=== PATIENT | male | born 1975 | race Two or more races ===

== ENCOUNTER 2016-12-28 16:25 | Emergency (ER) | payer SELFPAY ==
[~2016-12-28] VITALS: Ht 177.8 cm; Wt 95.0 kg
[2016-12-28 16:26] VITALS: BP 144/75; TEMP 98.2; O2SAT 99
--- NOTE | 2016-12-28 16:35 | PD ---
Physical Exam Time Seen by Provider: 16:33 Narrative 41 yo M requesting medical clearance after being treated for conjunctivitis. Finished antibx eye drops yesterday. Reports resolution of symptoms. 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 VS reviewed. Patient seen in triage. Awaiting bed placement. Data Data Last Documented VS Vital Signs Date Time Temp Pulse Resp B/P Pulse Ox O2 Delivery O2 Flow Rate FiO2 12/28/16 16:26 98.2 103 17 144/75 99 MDM Supervised Visit with SAMANTHA: Gabby Merritt December 28, 2016 16:35
--- NOTE | 2016-12-28 17:02 | PD ---
HPI . note to return to work Chief Complaint: Medical Clearance Time Seen by Provider: 16:58 Travel History International Travel<30 days: No Contact w/Intl Traveler<30days: No Traveled to known affect area: No History of Present Illness HPI 41 yr old male who recently had conjunctivitis here requesting a note to return to work. 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 Has no eye issues. PFSH Past Medical History ?: Not Social History Tobacco Use: No Allergies-Medications (Allergen,Severity, Reaction): Coded Allergies: No Known Allergies (Unverified , 12/28/16) Review of Systems General / Constitutional: No: Fever Eyes: No: Visual changes HENT: No: Headaches Cardiovascular: No: Chest Pain or Discomfort Respiratory: No: Shortness of Breath Gastrointestinal: No: Abdominal Pain Genitourinary: No: Dysuria Musculoskeletal: No: Pain Skin: No Rash Neurologic: No: Weakness Psychiatric: No: Depression Endocrine: No: Polydipsia Hematologic/Lymphatic: No: Easy Bruising Physical Exam Narrative GENERAL: AAO x 3, no acute distress, Well-nourished, well-developed patient. SKIN: Warm and dry. No visible rashes or bruising. HEAD: Normocephalic and atraumatic. EYES: No scleral icterus. No injection or drainage. EOM intact, PERRLA ENT: No nasal drainage noted. Mucous membranes pink. Airway patent. NECK: Supple, trachea midline. No JVD. CARDIOVASCULAR: Regular rate and rhythm without murmurs, gallops, or rubs. RESPIRATORY: Breath sounds equal bilaterally. No accessory muscle use. No rhonchi or rales. GASTROINTESTINAL: Visual inspection normal EXTREMITIES: No cyanosis or edema. BACK: Nontender without obvious deformity. No CVA tenderness. PSYCH: AAO x 3, normal affect. Data Data Last Documented VS Vital Signs Date Time Temp Pulse Resp B/P Pulse Ox O2 Delivery O2 Flow Rate FiO2 12/28/16 16:26 98.2 103 17 144/75 99 MDM Medical Decision Making Medical Screen Exam Complete: Yes Emergency Medical Condition: No Medical Record Reviewed: Yes Differential Diagnosis medical clearance, medical check up, Narrative Course 41 yr old male who recently had conjunctivitis here requesting a note to return to work. 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 Has no eye issues. A medical screening exam was performed: At the time of evaluation the presenting medical condition was determined not to be of an emergent nature. The patient was given the option of receiving additional care, but declined. Patient was given options for additional community resources from which to obtain care. The Patient Has Been advised to seek medical attention for their presenting complaint. The patient has been advised to return to the ER at any time if an emergent condition develops. Diagnosis Primary Impression: Encounter for medical screening examination Condition: Stable Rosana Santos December 28, 2016 17:02
== END 2016-12-28 17:16 | disposition left against medical advice (07) ==
LOC: NEPK 16:25
DX: Z02.79 Encounter for issue of other medical certificate (principal)
CPT/HCPCS: 99281

== ENCOUNTER 2017-04-23 10:39 | Emergency (ER) | payer SELFPAY ==
[~2017-04-23] VITALS: Ht 177.8 cm; Wt 100.0 kg
[2017-04-23 10:40] VITALS: BP 151/85; PULSE 87; RESP 15; TEMP 98.2; O2SAT 98
--- NOTE | 2017-04-23 10:51 | PD ---
HPI . diffuse abdominal pain x 1 day Chief Complaint: GI Complaint Time Seen by Provider: 10:50 Travel History International Travel<30 days: No Contact w/Intl Traveler<30days: No Traveled to known affect area: No History of Present Illness HPI 41-year-old male with history of tobaccoism here with complaints of diffuse abdominal pain that has been present since last night. Patient said he developed a sudden onset of nausea, vomiting and diarrhea. Since last night he' s had 2 episodes of vomiting. He tells me that he's had 2 loose stools. He is now having abdominal pain that he rates as 8/10. He denies any nausea. He denies CP or SOB. PFSH Past Medical History Medical History: Denies Significant Hx Social History Tobacco Use: No Allergies-Medications (Allergen,Severity, Reaction): Coded Allergies: No Known Allergies (Unverified , 12/28/16) Reported Meds & Prescriptions Reported Meds & Active Scripts Active No Active Prescriptions or Reported Medications Review of Systems General / Constitutional: No: Fever Eyes: No: Visual changes HENT: No: Headaches Cardiovascular: No: Chest Pain or Discomfort Respiratory: No: Shortness of Breath Gastrointestinal: Positive: Nausea, Vomiting, Diarrhea, Abdominal Pain Genitourinary: No: Dysuria Musculoskeletal: No: Pain Skin: No Rash Neurologic: No: Weakness Psychiatric: No: Depression Endocrine: No: Polydipsia Hematologic/Lymphatic: No: Easy Bruising Physical Exam Narrative GENERAL: AAO x 3, no acute distress, Well-nourished, well-developed patient. SKIN: Warm and dry. No visible rashes or bruising. HEAD: Normocephalic and atraumatic. EYES: No scleral icterus. No injection or drainage. ENT: No nasal drainage noted. Mucous membranes pink. Airway patent. NECK: Supple, trachea midline. No JVD. CARDIOVASCULAR: Regular rate and rhythm without murmurs, gallops, or rubs. RESPIRATORY: Breath sounds equal bilaterally. No accessory muscle use. No rhonchi or rales. GASTROINTESTINAL: Abdomen soft, mild tenderness to deep palpation. Neg Alva's sign or McBurney Point tenderness EXTREMITIES: No cyanosis or edema. BACK: No obvious deformity. No CVA tenderness. NEURO: CN II-12 intact, PSYCH: AAO x 3, normal affect. Data Data Last Documented VS Vital Signs Date Time Temp Pulse Resp B/P (MAP) Pulse Ox O2 Delivery O2 Flow Rate FiO2 04/23/17 11:25 04/23/17 11:05 18 04/23/17 11:04 97 Nasal Cannula 2.00 04/23/17 10:40 98.2 87 Orders Orders Complete Blood Count With Diff (04/23/17 10:54) Comprehensive Metabolic Panel (04/23/17 10:54) Lipase (04/23/17 10:54) Urinalysis - C+S If Indicated (04/23/17 10:54) Iv Access Insert/Monitor (04/23/17 10:54) Ecg Monitoring (04/23/17 10:54) Oximetry (04/23/17 10:54) Sodium Chloride 0.9% Flush (Ns Flush) (04/23/17 11:00) Ketorolac Inj (Toradol Inj) (04/23/17 11:00) Labs Laboratory Tests Test 04/23/17 11:02 Alanine Aminotransferase (ALT/SGPT) 75 U/L MDM Medical Decision Making Medical Screen Exam Complete: Yes Emergency Medical Condition: Yes Medical Record Reviewed: Yes Differential Diagnosis Gastroenteritis, gastritis, pancreatitis, cholecystitis, cholelithiasis, less likely nephrolithiasis Narrative Course 41-year-old male here with complaints of diffuse abdominal tenderness, nausea, vomiting and diarrhea for one day. On examination there are no gross abnormalities other than some diffuse tenderness in his abdomen with deep palpation. I've ordered some labs including CBC, CMP, lipase and UA. Pending workup will make further recommendations. At this time I will hold off on CT scan as his abdominal examination was fairly benign. Toradol given in ED. 1132: I was notified by nursing staff patient did not like toradol and decided to sign out AMA. Diagnosis Primary Impression: Left against medical advice Scripts No Active Prescriptions or Reported Meds Disposition: 07 AGAINST MEDICAL ADVICE Condition: Stable Rosana Santos Apr 23, 2017 10:51
[2017-04-23] MEDS ORDERED: KETOROLAC TROMETHAMINE 30 MG/ML (IVP) VIAL IVP ONE (11:00)
[2017-04-23] MEDS ORDERED: SODIUM CHLORIDE 0.9% FLUSH 10 ML FLUSH IV FLUSH PRN (11:00)
[2017-04-23 11:04] VITALS: O2SAT 97
[2017-04-23 11:20] LABS: AUTOMATED NEUTROPHIL # 4.2 TH/MM3 (1.8-7.7); BASOPHIL % 0.3 % (0.0-2.0); EOSINOPHIL # 0.1 TH/MM3 (0-0.4); EOSINOPHIL % 1.4 % (0.0-4.0); HEMATOCRIT 44.9 % (39.0-51.0); LYMPH % 23.2 % (9.0-44.0); LYMPHOCYTE # 1.4 TH/MM3 (1.0-4.8); MEAN CELL VOLUME 99.1 FL (80.0-100.0); MEAN CORPUSCULAR HEMOGLOBIN 32.7 PG (27.0-34.0); MONO % 6.2 % (0.0-8.0); NEUT % 68.9 % (16.0-70.0); PLATELET COUNT 146 TH/MM3 (150-450); RED BLOOD COUNT 4.53 MIL/MM3 (4.50-5.90); WHITE BLOOD COUNT 6.2 TH/MM3 (4.0-11.0)
[2017-04-23 11:31] LABS: ALT (GPT) 75 U/L (12-78)
[2017-04-23 11:34] LABS: ALKALINE PHOSPHATASE 92 U/L (45-117); TOTAL BILIRUBIN ADULT 0.8 MG/DL (0.2-1.0)
[2017-04-23 11:48] LABS: ANION GAP 8 MEQ/L (5-15); AST (GOT) 41 U/L (15-37); BICARBONATE 22.2 MEQ/L (21.0-32.0); BLOOD UREA NITROGEN 9 MG/DL (7-18); CHLORIDE 109 MEQ/L (98-107); GLOMERULAR FILTRATION RATE 74 ML/MIN (>89); POTASSIUM 3.8 MEQ/L (3.5-5.1); SODIUM (NA) 139 MEQ/L (136-145)
[2017-04-23 11:53] LABS: HEMO FLAGS AUTO DIFF; PLATELET ESTIMATE SMEAR NORMAL (NORMAL); PLATELET MORPHOLOGY ENLARGED (NORMAL); SCAN/DIFF AUTO DIFF CONFIRMED
== END 2017-04-23 11:43 | disposition left against medical advice (07) ==
LOC: NEPD 10:39
DX: R10.84 Generalized abdominal pain (principal); R11.2 Nausea with vomiting, unspecified
CPT/HCPCS: 80053; 83690; 85025; 96374; 99283; J1885